=== PATIENT | male | born 1955 | race Caucasian/White ===

== ENCOUNTER 2023-07-15 16:30 | Emergency (ER) | payer OTHER, SELFPAY ==
[2023-07-15] VITALS (8 sets, daily range): BP systolic 147–181; BP diastolic 76–103; PULSE 80–98; RESP 16–20; TEMP 36.6–36.9; O2SAT 96–99; BMI 25.8; BMI 25.4
--- NOTE | ~2023-07-15 | XR_ITS ---
EXAMINATION: XR CHEST CLINICAL INFORMATION: Pain. COMPARISON: None available. TECHNIQUE: 2 views of the chest were obtained. FINDINGS: The cardiac silhouette is normal in size. There is a 1.5 x 1.5 cm nodular density within the right upper lobe. A pulmonary nodule is suspected. Chest CT is recommended to further evaluate this. There is a hazy opacity at the right lung base. Developing pneumonia is not excluded. There is no pleural effusion. There is no pneumothorax. There are degenerative changes of the spine. There is partially visualized lumbar fixation hardware. XR/XR chest 2V IMPRESSION: There is a 1.5 x 1.5 cm nodular density within the right upper lobe. A pulmonary nodule is suspected. Chest CT is recommended to further evaluate this. There is a hazy opacity at the right lung base. Developing pneumonia is not excluded.
--- NOTE | ~2023-07-15 | CT_ITS ---
EXAMINATION: CT ANGIOGRAM HEAD CT ANGIOGRAM NECK CLINICAL INFORMATION: Reason for Exam dizziness COMPARISON: None. TECHNIQUE: Initial noncontrast animal ride manager imaging of the head and neck was performed. Noncontrast head CT was also performed. Test bolus sequences followed by intravenous administration 70 mL of Omnipaque 350. Helical imaging was performed in the axial plane from the aortic arch to the skull vertex. Delayed postcontrast imaging of the head was also performed. The data was processed at the angio technologist workstation for generation of MIP sequences. Angled MIPs and volume rendered reformatted images were also generated at an offline 3D workstation. Stenoses are assessed in accordance with NASCET criteria unless otherwise indicated. DLP: 2542 mGy-cm This CT examination was performed using dose optimization techniques as appropriate, variously including the following: *Automated exposure control. *Adjustment of mA and/or kV according to patient size (this includes techniques or standardized protocols for targeted exams where dose is matched to indication/reason for exam; i.e. extremities or head). *Use of iterative reconstruction technique. FINDINGS: CT Head: There is an acute hyperdense interparenchymal hematoma involving the right temporo-occipital junction measuring up to 2.2 x 2.1 cm in maximal axial dimensions. Mild surrounding vasogenic edema. No global mass effect or midline shift. No evidence of active contrast extravasation. Additionally, there is a cluster of several subcentimeter acute intraparenchymal hematomas involving the medial right frontal lobe. There is no evidence of edematous territorial infarction. Scattered hypoattenuation in the periventricular and deep white matter are consistent with microangiopathy. [place]-white matter differentiation is preserved. Proportional prominence of the ventricles and sulcal spaces. No evidence for obstructive hydrocephalus. No extra-axial fluid collections. No pathologic intra-axial enhancement or regional oligemia. No acute soft tissue or osseous abnormalities. Severe degenerative changes of the right temporomandibular joint. The mastoids and paranasal sinuses are well aerated. CT Neck: Subcentimeter peripherally calcified nodule in the left lobe of the thyroid gland which does not require further imaging follow-up. And remaining cervical soft tissues are within normal limits. Multilevel cervical spondylosis. CT Upper Chest: Mild linear scarring in the right lung apex. The visualized lung apices and upper mediastinum are otherwise within normal limits. Neck CTA: Aortic Arch: Normal contour and caliber. Classic 3 vessel branching pattern of the aortic arch. Great Vessel Origins: No significant stenosis of the branch origins. Right Common Carotid Artery: No focal stenosis or occlusion. Cervical Right Internal Carotid Artery: Mild calcific atherosclerotic disease of the carotid bulb and proximal internal carotid artery without flow-limiting stenosis. Left Common Carotid Artery: No focal stenosis or occlusion. Cervical Left Internal Carotid Artery: Mild calcific atherosclerotic disease of the carotid bulb and proximal internal carotid artery without flow-limiting stenosis. Cervical Right Vertebral Artery: No focal stenosis or occlusion. Cervical Left Vertebral Artery: No focal stenosis or occlusion. Brain CTA: Intracranial Internal Carotid Arteries: No focal stenosis or occlusion. Right Anterior Cerebral Artery: Normal A1 segment. Normal opacification of the distal CARO segments. Left Anterior Cerebral Artery: Normal A1 segment. Normal opacification of the distal CARO segments. Anterior Communicating Artery: Normal. Right Middle Cerebral Artery: Normal M1 segment of the MCA without focal stenosis or occlusion. Normal arborization of the distal segments. Left Middle Cerebral Artery: Normal M1 segment of the MCA without focal stenosis or occlusion. Normal arborization of the distal segments. Right Vertebral Artery: Normal V4 segment. Left Vertebral Artery: Normal V4 segment. Basilar Artery: Normal without focal stenosis or occlusion. Normal appearance of the proximal superior cerebellar arteries. Right Posterior Cerebral Artery: Normal P1 segment. Normal opacification of the distal TIE MAN segments. Left Posterior Cerebral Artery: Normal P1 segment. Normal opacification of the distal TIE MAN segments. No definite intracranial vascular malformation is identified. No vascular nidus or enlarged draining veins are seen. However, there is an asymmetrically enlarged tentorial branch of the right TIE MAN complex which courses towards the right transverse sinus. CT/CT angio head neck IMPRESSION: 1. Acute intraparenchymal hematoma involving the right temporo-occipital junction measuring up to 2.2 cm with mild surrounding vasogenic edema. Additionally, there is a cluster of subcentimeter intraparenchymal hematomas within the medial right frontal lobe. Consider further assessment with contrast-enhanced MRI of the brain to assess for underlying hemorrhagic lesions such as metastases. 2. No definite intracranial vascular malformation is identified, however there is an asymmetrically prominent tentorial branch of the right TIE MAN complex and underlying arteriovenous shunting lesion is not excluded on the basis of this examination. Consider further assessment with neurovascular consultation and [id number] a conventional cerebral angiogram if MRI is unrevealing. Above impression was communicated to CLEM Navarro on 07/15/2023 7:15 PM
--- NOTE | 2023-07-15 16:42 | ECG_ITS ---
Test Reason : PAIN Blood Pressure : / mmHG Vent. Rate : 079 BPM Atrial Rate : 079 BPM P-R Int : 138 ms QRS Dur : 088 ms QT Int : 406 ms P-R-T Axes : -12 010 010 degrees QTc Int : 465 ms Normal sinus rhythm Normal ECG No previous ECGs available Referred By: Aly Garcia Electronically Signed By:MICHAEL SAMANIEGO
[2023-07-15] MEDS: LORazepam 2 MG/ML VIAL 1 MG IVPUSH (17:01)
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
--- NOTE | 2023-07-15 17:37 | PC.NURSE ---
pt is alert and answering all of this Rn's questions appropriately, skin is pwd but super flushed in the face-pt reports being a daily drinker and his last drink was this morning about 0400, pt is visible tremolos at this time, denies headache, nausea, vs stable and seizure pads are on rails
[2023-07-15 17:40] LABS: Appearance Urine Clear; Color Urine Dark Yellow; Glucose Urine UA Negative (Negative); Leukocyte Esterase Urine Small (1+) (Negative); Nitrite Urine Negative (Negative); PH 6.5 (5.0-9.0); UMIC TRIGGER UACC YES; Urine Blood Negative (Negative); Urine Ketones 15 mg/dL (Negative); Urine Protein 30 (1+) mg/dL (Neg-Trace)
[2023-07-15 17:45] LABS: MANUAL DIFF FLAG NO
[2023-07-15 17:48] LABS: Basophils Absolute Auto 0.1 X10*3/uL (0.0-0.2); Basophils Percent Auto 0.6 % (0-2); Eosinophils Absolute Auto 0.1 X10*3/uL (0.0-0.4); Eosinophils Percent Auto 0.5 % (0-4); Hematocrit 40.9 % (42.0-52.0); Hemoglobin 14.5 g/dl (14.0-18.0); Imm Gran Abs Auto 0.06 X10*3/uL (0.00-0.03); Imm Gran Pct Auto 0.6 % (0.0-0.4); Lymphocytes Absolute Auto 0.6 X10*3/uL (1.2-4.9); Lymphocytes Percent Auto 5.9 % (20-40); Mean Corpuscular HGB Conc 35.5 g/dl (31.0-36.0); Mean Platelet Volume 10.4 fL (9.4-12.4); Monocytes Absolute Auto 0.9 X10*3/uL (0.1-1.2); Monocytes Percent Auto 9.2 % (2-11); Neutrophils Absolute Auto 7.8 x10*3/uL (2.0-8.3); Neutrophils Percent Auto 83.2 % (45-73); Platelet Count 190 X10*3/uL (160-400); Red Cell Distribution Width 13.5 % (11.0-16.0); White Blood Count 9.4 X10*3/uL (4.8-10.8)
[2023-07-15 17:50] LABS: Amphetamine Screen Urine Not Detected (Not Detect); Barbiturates, Urine Not Detected (Not Detect); Benzodiazepines Screen Urine POSITIVE (Not Detect); Buprenorphine Scr Not Detected (Not Detect); Cannabinoid Screen Urine Not Detected (Not Detect); Cocaine Screen Urine Not Detected (Not Detect); Fentanyl, urine Not Detected (Not Detect); Methadone Screen, Urine Not Detected (Not Detect); Opiate Screen Urine Not Detected (Not Detect); Oxycodone Screen Urine Not Detected (Not Detect); Phencyclidine Screen Urine Not Detected (Not Detect)
[2023-07-15 17:51] LABS: INTERNATIONAL NORM RATIO 0.9 (0.9-1.1); Prothrombin Time 10.9 SEC (11.1-13.3)
[2023-07-15 17:52] LABS: Ammonia 21 umol/L (13-55)
[2023-07-15 17:56] LABS: Bacteria Urine None Seen (None Seen); Hyaline Casts Urine 0-2 /LPF (0-2); RBC Urine 0-2 /HPF (0-2); Squamous Epithelial Cell Urine 0-2 /HPF (0-2); UACC Culture Trigger YES; WBC Urine 0-5 /HPF (0-5)
--- NOTE | 2023-07-15 18:02 | PC.NURSE ---
Addendum entered by Tess Su 07/15/23 18:06: pt also reported to feel dizzy when he stood up Original Note: performed orthostatic vs, pt was having a hard tome following instructions/directions attempting to get dressed and states he wants to leave
[2023-07-15 18:07] LABS: Alanine Aminotransferase 26 U/L (0-40); Alkaline Phosphatase 94 U/L (39-117); Anion Gap 13 (12-20); Aspartate Amino Transferase 31 U/L (5-37); Bilirubin Total 1.3 mg/dL (0.0-1.0); Blood Urea Nitrogen 14 mg/dL (9-16); Calcium 9.4 mg/dL (8.4-10.2); Carbon Dioxide 26 mmol/L (22-29); Chloride 99 mmol/L (96-108); Creatinine Clr Calc Pharmacy 84.1; Estimated Glomerular Filt Rate > 60; Ethanol < 10 mg/dL; Glucose Random 131 mg/dL (60-115); Lipase 45 U/L (8-78); Potassium 4.4 mmol/L (3.3-5.1); Sodium 134 mmol/L (135-145); Total Protein 7.2 g/dL (6.5-8.0)
[2023-07-15] MEDS: iohexoL 350 MG/ML 100 ML INFUS..BTL IV (18:29)
[2023-07-15] MEDS: PHENobarbitaL sodium 130 MG/ML IM ONCE 292 MG IM (19:04)
== END 2023-07-15 20:30 | disposition short-term general hospital (02) ==
PROVIDERS: Physician Assistant; Emergency Provider Emergency Medicine
DX: I61.8 Other nontraumatic intracerebral hemorrhage (principal); R42 Dizziness and giddiness; J45.909 Unspecified asthma, uncomplicated; I10 Essential (primary) hypertension; E78.5 Hyperlipidemia, unspecified; F10.20 Alcohol dependence, uncomplicated; R07.9 Chest pain, unspecified; R82.90 Unspecified abnormal findings in urine
CPT/HCPCS: 36415; 70496; 70498; 71046; 80053; 80184; 80307; 81001; 82140; 83690; 85025; 85610; 87086; 93005; 96372; 96374; 99285; J2060; J2560; Q9967

== ENCOUNTER → 2023-07-15 16:42 | Outpatient (BNV) | payer OTHER, SELFPAY | PROVIDERS: Emergency Provider Emergency Medicine; Visit Provider Internal Medicine | DX: R41.82 Altered mental status, unspecified (principal) | CPT/HCPCS: 93010 ==